=== PATIENT | male | born 1950 | race Caucasian/White ===

== ENCOUNTER → 2020-11-24 | Outpatient (CLI) | payer BC ==
[~2020-11-24] MED LIST: CELEBREX50 MG PO; DAYPRO600 M1 PO; HYDROCHLOROTH12.5 M1 PO; LISINOPRIL10 MG PO; VICODIN 500 MG-1 TAB PO; VITAMIN D1000 IU PO
== END | disposition home or self-care (01) ==
LOC: RAD 10:36
PROVIDERS: ATTEND Family Medicine
DX: M47.817 Spondylosis without myelopathy or radiculopathy, lumbosacral region (principal)

== ENCOUNTER → 2024-08-02 | Outpatient (CLI) | payer OTHER | END | disposition home or self-care (01) | LOC: US 12:45 | PROVIDERS: ATTEND Internal Medicine Nephrology | DX: S40.021A Contusion of right upper arm, initial encounter (principal); X58.XXXA Exposure to other specified factors, initial encounter; Y93.89 Activity, other specified; Y92.89 Other specified places as the place of occurrence of the external cause; Y99.8 Other external cause status ==